=== PATIENT | female | born 1950 | race Caucasian/White ===

== ENCOUNTER 2018-10-07 10:05 | Emergency (ER) | payer MEDICARE, MEDICAID ==
[~2018-10-07] VITALS: Ht 172.7 cm; Wt 73.3 kg
[~2018-10-07 10:05] MED LIST: ALBU2.5V10 IN; ALBU8.5H8 IH; CARV3.122 PO; DABI150C PO; LEVE500T PO; LEVO150T62 PO; LOSA100T15 PO; NOR5T PO; NORCO10T PO; TIOT18CA7 IH
[2018-10-07] MEDS ORDERED: ipratropium/albuterol 3ml nebule NEB ONE ×2 (10:20→11:40)
[2018-10-07] MEDS ORDERED: predniSONE 20 mg tablet PO ONE (10:35)
[2018-10-07] MEDS ORDERED: ALBU8HFA PO (12:02)
[2018-10-07 12:13] VITALS: BP 152/86
== END 2018-10-07 12:15 | disposition home or self-care (01) ==
LOC: ER 10:06
DX: J44.1 Chronic obstructive pulmonary disease with (acute) exacerbation (principal); I48.91 Unspecified atrial fibrillation; I10 Essential (primary) hypertension; E03.9 Hypothyroidism, unspecified; Z85.841 Personal history of malignant neoplasm of brain; Z88.5 Allergy status to narcotic agent; Z79.899 Other long term (current) drug therapy
CPT/HCPCS: 71045; 93005; 94640; 94760; 99284; J7512

== ENCOUNTER 2019-08-13 16:04 | Emergency (ER) | payer MEDICARE, MEDICAID ==
[~2019-08-13] VITALS: Ht 172.7 cm; Wt 71.3 kg
[~2019-08-13 16:04] MED LIST changes: -LOSA100T15 PO; +LOSA100T57 PO
[2019-08-13] MEDS ORDERED: ipratropium/albuterol 3ml nebule NEB ONE (17:20)
--- NOTE | 2019-08-13 17:27 | NUR ---
Taken to ct and xray via wheelchair/ pt is alert, speaking without issue
[2019-08-13] MEDS ORDERED: HYDROcodone/acetaminophen 5mg/325mg tablet PO ONE (17:30)
[2019-08-13] MEDS ORDERED: PRED20TA PO (18:56)
[2019-08-13 19:09] VITALS: BP 149/89
== END 2019-08-13 19:11 | disposition home or self-care (01) ==
LOC: ER 16:05
DX: R51 Headache (principal); J44.1 Chronic obstructive pulmonary disease with (acute) exacerbation; I48.91 Unspecified atrial fibrillation; I10 Essential (primary) hypertension; J44.9 Chronic obstructive pulmonary disease, unspecified; E03.9 Hypothyroidism, unspecified; F41.9 Anxiety disorder, unspecified; F31.9 Bipolar disorder, unspecified; I25.10 Atherosclerotic heart disease of native coronary artery without angina pectoris; F17.200 Nicotine dependence, unspecified, uncomplicated; Z88.5 Allergy status to narcotic agent; Z79.899 Other long term (current) drug therapy; Z98.890 Other specified postprocedural states
CPT/HCPCS: 70450; 71045; 94640; 94760; 99284

== ENCOUNTER 2020-03-23 08:40 | Emergency (ER) | payer MEDICARE, MEDICAID ==
[~2020-03-23] VITALS: Ht 172.7 cm; Wt 71.0 kg
--- NOTE | 2020-03-23 09:13 | NUR ---
PATIENT STATES SHE IS RUNNING OUT OF ALBUTEROL FOR HER NEBULIZER AND ALBUTEROL INHALER, SO REQUESTING REFILL OF MEDICATIONS.
[2020-03-23] MEDS ORDERED: IPRA3AMP31 IH (09:31)
[2020-03-23] MEDS ORDERED: ALBU8HFA PO (09:31)
[2020-03-23 09:43] VITALS: BP 161/102
== END 2020-03-23 09:44 | disposition home or self-care (01) ==
LOC: ER 08:40
DX: Z76.0 Encounter for issue of repeat prescription (principal); I48.91 Unspecified atrial fibrillation; I10 Essential (primary) hypertension; J44.9 Chronic obstructive pulmonary disease, unspecified; E03.9 Hypothyroidism, unspecified; F41.9 Anxiety disorder, unspecified; F31.9 Bipolar disorder, unspecified; Z86.19 Personal history of other infectious and parasitic diseases; Z72.89 Other problems related to lifestyle; Z60.2 Problems related to living alone; Z88.5 Allergy status to narcotic agent; Z79.899 Other long term (current) drug therapy
CPT/HCPCS: 99281

== ENCOUNTER 2021-01-27 12:37 | Emergency (ER) | payer MEDICARE, MEDICAID ==
[~2021-01-27] VITALS: Ht 172.7 cm; Wt 72.7 kg
[~2021-01-27 12:37] MED LIST changes: -ALBU2.5V10 IN; -ALBU8.5H8 IH; +ATOR20TA PO; +HYDR-4069 PO; +IPRA3AMP31 IH; -LEVE500T PO; +LEVE750T PO; -LEVO150T62 PO; +LEVO175T7 PO; -NOR5T PO; +OXCA300T16 PO; +POTA10TA PO; -TIOT18CA7 IH; +ZOLP10TA PO
[2021-01-27 15:19] LABS: BASOPHILS # (AUTO) 0.1 X10'3 (0-0.2); BASOPHILS % (AUTO) 0.9 % (0-1); EOSINOPHILS % (AUTO) 0.2 % (0-6); HEMATOCRIT 41.3 % (35.0-45.0); HEMOGLOBIN 13.6 g/dl (12.0-16.0); LYMPHOCYTES % (AUTO) 13.5 % (21-51); MEAN CORPUSCULAR HEMOGLOBIN 34.5 PG (27.0-31.0); MEAN CORPUSCULAR HGB CONC 33.1 g/dL (33.0-36.5); MEAN CORPUSCULAR VOLUME 104.3 FL (78-98); MEAN PLATELET VOLUME 6.9 FL (7.4-10.4); MONOCYTES # (AUTO) 0.7 X10'3 (0-0.9); MONOCYTES % (AUTO) 9.2 % (2-12); NEUTROPHILS # (AUTO) 5.9 X10'3 (1.8-7.7); NEUTROPHILS % (AUTO) 76.2 % (42-75); PLATELET COUNT 291 X10'3 (140-440); RED BLOOD COUNT 3.96 X10'6 (4.20-5.60); RED CELL DISTRIBUTION WIDTH 13.5 % (11.5-14.5); WHITE BLOOD COUNT 7.7 X10'3 (4.5-11.0)
[2021-01-27 15:31] LABS: PARTIAL THROMBOPLASTIN TIME 36 SECONDS (22-32)
[2021-01-27] MEDS ORDERED: aspirin 325mg tablet PO ONE (15:45)
[2021-01-27 16:06] LABS: ALANINE AMINOTRANSFERASE 24 U/L (12-78); ALBUMIN 4.4 G/DL (3.4-5.0); ALBUMIN/GLOBULIN RATIO 1.1 (1.1-1.5); ALKALINE PHOSPHATASE 89 IU/L (46-116); ANION GAP 10 (8-16); ASPARTATE AMINO TRANSFERASE 21 U/L (10-37); BILIRUBIN,TOTAL 0.9 MG/DL (0.1-1.0); BLOOD UREA NITROGEN 13 MG/DL (7-18); BUN/CREATININE RATIO 18.3 (6.6-38.0); CALCIUM 9.3 MG/DL (8.5-10.1); CHLORIDE 98 MMOL/L (99-107); CREATININE 0.71 MG/DL (0.40-0.90); ETHANOL < 0.010 GM/DL (0.0-0.010); GLUCOSE 132 MG/DL (70-104); POTASSIUM 3.9 MMOL/L (3.5-5.1); SODIUM 137 MMOL/L (135-145); TOTAL PROTEIN 8.3 G/DL (6.4-8.2); eGFR 81 ML/MIN
[2021-01-27 16:57] LABS: CLARITY,URINE CLOUDY (Clear); COLOR,URINE YELLOW (Yellow); GLUCOSE, URINE NEGATIVE (Neg); KETONES,URINE NEGATIVE (Neg); LEUKOCYTE ESTERASE ,URINE NEGATIVE (Neg); NITRITES, URINE NEGATIVE (Neg); OCCULT BLOOD,URINE NEGATIVE (Neg); PH,URINE 6.5 (4.8-8.0); PROTEIN,URINE 100 mg/dl (Neg)
[2021-01-27 16:59] LABS: UA COLLECTION TYPE CLN CATCH MIDSTREAM
[2021-01-27 17:06] LABS: URINE AMPHETAMINE SCREEN NEGATIVE (Neg); URINE BARBITUATE SCREEN NEGATIVE (Neg); URINE BENZODIAZEPINES SCREEN NEGATIVE (Neg); URINE CANNABINOID SCREEN NEGATIVE (Neg); URINE COCAINE SCREEN NEGATIVE (Neg); URINE METHADONE SCREEN NEGATIVE (Neg); URINE OPIATE SCREEN POSITIVE (Neg); URINE PHENCYCLIDINE SCREEN NEGATIVE (Neg)
[2021-01-27 17:23] VITALS: BP 186/114
[2021-01-27 17:24] LABS: HYALINE CASTS >30 /LPF (NEGATIVE); MUCUS STRANDS MODERATE /LPF (Neg); SQUAMOUS EPITHELIAL CELL,UR MANY /LPF (FEW)
[2021-01-27 17:25] LABS: BACTERIA,URINE 1+ /HPF (Neg); RBC,URINE 0-2 /HPF (0-2); WBC,URINE 0-4 /HPF (0-4)
== END 2021-01-27 17:24 | disposition home or self-care (01) ==
LOC: ER 12:38
DX: R41.0 Disorientation, unspecified (principal); G93.89 Other specified disorders of brain; I48.91 Unspecified atrial fibrillation; I10 Essential (primary) hypertension; J44.9 Chronic obstructive pulmonary disease, unspecified; E03.9 Hypothyroidism, unspecified; F41.9 Anxiety disorder, unspecified; F31.9 Bipolar disorder, unspecified; Z86.19 Personal history of other infectious and parasitic diseases; Z85.841 Personal history of malignant neoplasm of brain; Z72.89 Other problems related to lifestyle; Z60.2 Problems related to living alone; Z88.5 Allergy status to narcotic agent; Z79.899 Other long term (current) drug therapy
CPT/HCPCS: 36415; 70450; 71045; 80053; 80305; 80320; 81001; 82948; 85025; 85610; 85730; 93005; 99285